=== PATIENT | male | born 1995 | race American Indian/Alaskan Native ===

== ENCOUNTER 2018-12-30 00:58 | Emergency (ER) | payer MEDICAID, OTHER ==
[2018-12-30 01:11] VITALS: BP 124/91
[2018-12-30 01:33] LABS: Basophils # (Auto) 0.1 K/mm3 (0.0-0.1); Basophils % (Auto) 1.2 % (0.0-1.8); Eosinophils # (Auto) 0.1 K/mm3 (0.0-0.4); Eosinophils % (Auto) 0.8 % (0.0-4.3); Hematocrit 44.9 % (35.5-45.6); Hemoglobin 15.2 gm/dl (11.8-15.2); Lymphocytes % (Auto) 31.2 % (13.4-35.0); Mean Corpuscular HGB Conc 34 % (32-34); Mean Corpuscular Volume 90 fl (84-94); Monocytes # (Auto) 0.7 K/mm3 (0.0-0.8); Monocytes % (Auto) 7.4 % (0.0-7.3); Platelet Count 211 K/mm3 (140-440); Red Blood Count 5.01 M/mm3 (3.65-5.03); Red Cell Distribution Width 13.9 % (13.2-15.2)
[2018-12-30 01:43] LABS: INR 0.99 (0.87-1.13); Partial Thromboplastin Time 30.5 Sec. (24.2-36.6)
[2018-12-30 01:56] LABS: Alanine Aminotransferase 10 units/L (7-56); Albumin 4.9 g/dL (3.9-5); BUN/Creatinine Ratio 11; Blood Urea Nitrogen 11 mg/dL (9-20); Calcium 9.9 mg/dL (8.4-10.2); Hemolysis Index 4
--- NOTE | 2018-12-30 04:46 | Emergency Department Report ---
ED GI Bleed HPI - General Chief complaint: GI Bleed Stated complaint: HEMORRHOIDS Time Seen by Provider: 12/30/18 04:41 Source: patient Mode of arrival: Ambulatory Limitations: No Limitations - History of Present Illness Initial comments: 23-year-old -[place] male reports emergency department complaining of painless rectal bleeding, which she experiences off and on primarily at the constipation-type bowel movements from the rectal area when wiping. Reports no known trauma, no fever, chills, sweats, no diarrhea, no significant abdominal pain. Reports no nausea, no vomiting, no foreign travel. States that the area is pain free, decided to come today to go ahead and have it looked at because it never did. There is no exacerbation of this issue at current. -: month(s) (2) Radiation: none Improves with: none Worsens with: none Associated Symptoms: denies: abdominal pain, nausea, vomiting, epistaxis, fever/chills, loss of appetite, malaise, easy bruising, rash, shortness of breath, syncope, weakness - Related Data Previous Rx's Medication Instructions Recorded Last Taken Type Ibuprofen [Motrin] 600 mg PO Q8H PRN #30 tablet 02/22/15 Unknown Rx Sulfamethoxazole/Trimethoprim 1 each PO BID #14 tablet 02/22/15 Unknown Rx [Bactrim Ds] traMADol [Ultram] 50 mg PO Q6HR PRN #14 tablet 02/22/15 Unknown Rx Allergies Allergy/AdvReac Type Severity Reaction Status Date / Time No Known Allergies Allergy Verified 02/22/15 05:57 ED Review of Systems ROS: Stated complaint: HEMORRHOIDS Other details as noted in HPI Constitutional: denies: chills, fever Eyes: denies: eye pain, eye discharge, vision change ENT: denies: ear pain, throat pain Respiratory: denies: cough, shortness of breath, wheezing Cardiovascular: denies: chest pain, palpitations Endocrine: no symptoms reported Gastrointestinal: denies: abdominal pain, nausea, diarrhea Genitourinary: denies: urgency, dysuria Musculoskeletal: denies: back pain, joint swelling, arthralgia Skin: denies: rash, lesions Neurological: denies: headache, weakness, paresthesias Psychiatric: denies: anxiety, depression Hematological/Lymphatic: denies: easy bleeding, easy bruising ED Past Medical Hx - Past Medical History Previous Medical History?: Yes Hx Asthma: Yes - Surgical History Past Surgical History?: Yes Additional Surgical History: Left eye - Social History Smoking Status: Never Smoker Substance Use Type: Alcohol, Marijuana - Medications Home Medications: Home Medications Medication Instructions Recorded Confirmed Last Taken Type Ibuprofen [Motrin] 600 mg PO Q8H PRN #30 tablet 02/22/15 Unknown Rx Sulfamethoxazole/Trimethoprim 1 each PO BID #14 tablet 02/22/15 Unknown Rx [Bactrim Ds] traMADol [Ultram] 50 mg PO Q6HR PRN #14 tablet 02/22/15 Unknown Rx ED Physical Exam - General Limitations: No Limitations General appearance: alert, in no apparent distress - Head Head exam: Present: atraumatic, normocephalic - Eye Eye exam: Present: normal appearance, PERRL, EOMI Pupils: Present: normal accommodation - ENT ENT exam: Present: normal exam, normal orophraynx, mucous membranes moist, TM's normal bilaterally, normal external ear exam - Neck Neck exam: Present: normal inspection, full ROM. Absent: tenderness, meningismus, lymphadenopathy, thyromegaly - Respiratory Respiratory exam: Present: normal lung sounds bilaterally. Absent: respiratory distress, wheezes, rales, chest wall tenderness, accessory muscle use - Cardiovascular Cardiovascular Exam: Present: regular rate, normal rhythm. Absent: systolic murmur, diastolic murmur, rubs, gallop - GI/Abdominal GI/Abdominal exam: Present: soft, normal bowel sounds - Rectal Rectal exam: Present: deferred, normal inspection, other (rectal evaluation. Normal rectal anatomy. No skin tags noted. No external hemorrhoids noted. No fissures. No signs of any perirectal abscesses. Normal rectals sprinter tone. Normal skin color.) - Extremities Exam Extremities exam: Present: normal inspection, full ROM - Back Exam Back exam: Present: normal inspection, full ROM - Neurological Exam Neurological exam: Present: alert, oriented X3, CN II-XII intact, normal gait - Psychiatric Psychiatric exam: Present: normal affect, normal mood - Skin Skin exam: Present: warm, dry, intact, normal color. Absent: rash ED Course Vital Signs 12/30/18 01:06 Temperature 98.2 F Pulse Rate 91 H Blood Pressure 124/91 ED Medical Decision Making - Lab Data Result diagrams: 12/30/18 01:15 12/30/18 01:15 - Medical Decision Making 21-year-old male was as well as department for 2 month history of painless rectal bleeding. I was may be related to to constipation episodes. It is likely that Mr. Cho has hemorrhoids above examination no external hemorrhoids were found. No external fissures are found. Discussed with Mr. Cho the possibility of internal hemorrhoids and recommend he follow with GI for further evaluation of this issue. He is pain-free right now has no bleeding right now, has not had any pain or bleeding for the last few days. When the episodes come, they are sporadic and they'll only last door and the actual BM process. The blood seems only on the tissue reports no profuse bleeding. No intense pain Critical care attestation.: If time is entered above; I have spent that time in minutes in the direct care of this critically ill patient, excluding procedure time. ED Disposition Clinical Impression: History of rectal bleeding Disposition: DC-01 TO HOME OR SELFCARE Is pt being admited?: No Does the pt Need Aspirin: No Condition: Stable Instructions: Hemorrhoids (ED), Rectal Bleeding (ED) Referrals: JAVAN OSPINA MD [Primary Care Provider] - 3-5 Days [facility] [Provider Group] - 2-3 Days
== END 2018-12-30 05:08 | disposition home or self-care (01) ==
LOC: ED 00:58
DX: K62.5 Hemorrhage of anus and rectum (principal); J45.909 Unspecified asthma, uncomplicated
CPT/HCPCS: 36415; 80053; 83690; 85025; 85610; 85730; 99284